=== PATIENT | female | born 1950 | race Caucasian/White ===

== ENCOUNTER 2025-05-03 09:50 | Emergency (ER) | payer OTHER, MEDICARE ==
[~2025-05-03] VITALS: Ht 165.1 cm; Wt 97.3 kg
[2025-05-03 10:44] LABS: BASO # 0.0 10^3/uL (0.0-0.2); BASO % 0.3 % (0.0-1.0); EOS # 0.1 10^3/uL (0.0-0.5); EOS % 0.8 % (0.0-3.0); LYMPH # 1.9 10^3/uL (1.5-5.0); LYMPH % 29.1 % (24.0-44.0); MONO # 0.5 10^3/uL (0.0-0.8); MONO % 8.1 % (2.0-8.0); NEUTROPHILS # 4.0 10^3/uL (1.5-8.5); NEUTROPHILS % 61.5 % (36.0-66.0); PLATELET COUNT, AUTOMATED 247 10^3/uL (150-450)
[2025-05-03 10:56] LABS: INR 1.14
[2025-05-03] MEDS ORDERED: EZET10TA57 PO (11:00)
[2025-05-03] MEDS ORDERED: LEVO25TA5 PO (11:00)
[2025-05-03] MEDS ORDERED: DILT180C70 PO (11:00)
[2025-05-03] MEDS ORDERED: PROP1TAB30 PO (11:00)
[2025-05-03] MEDS ORDERED: PANT40TA29 PO (11:00)
[2025-05-03] MEDS ORDERED: METF-838 PO (11:00)
[2025-05-03] MEDS ORDERED: MONT10TA97 PO (11:00)
[2025-05-03] MEDS ORDERED: ATOR40TA75 PO (11:00)
[2025-05-03] MEDS ORDERED: XARE15TA PO (11:00)
[2025-05-03 11:08] LABS: CPK CREATINE PHOSPHOKINASE 67 U/L (34-145)
[2025-05-03 11:09] LABS: ALT/SGPT 20 U/L (7.0-40); AST/SGOT 14 U/L (<34); CALCIUM LEVEL 9.1 MG/DL (8.3-10.6); CARBON DIOXIDE LEVEL 29 MMOL/L (20-31); CHLORIDE LEVEL 104 MMOL/L (98-107); CREATININE FOR GFR 0.68 MG/DL (0.55-1.30); GLOMERULAR FILTRATION RATE > 90.0 (>39); POTASSIUM SERUM 3.9 MMOL/L (3.5-5.1); SODIUM LEVEL 138 MMOL/L (136-145)
[2025-05-03 11:10] LABS: CK-MB VALUE MASS 1.9 NG/ML (<3.6); MB/CK RELATIVE INDEX 2.83 (< OR =4)
[2025-05-03 11:14] LABS: FREE T4 1.33 NG/DL (0.89-1.76)
[2025-05-03] MEDS ORDERED: HOME MED LIST COMPLETE! XX SCH (12:00)
[2025-05-03 12:30] LABS: CK-MB VALUE MASS 1.8 NG/ML (<3.6)
[2025-05-03 12:31] LABS: CPK CREATINE PHOSPHOKINASE 62 U/L (34-145); MB/CK RELATIVE INDEX 2.90 (< OR =4)
[2025-05-03 14:46] LABS: KETONE, URINE AUTO RFX NEGATIVE (NEGATIVE); LEUKOCYTE ESTERASE UR AUTO RFX NEGATIVE (NEGATIVE); NITRITE, URINE AUTO RFX NEGATIVE (NEGATIVE); RBC, URINE AUTO RFX 1 /HPF (0-3); SQUAM EPITHELIAL CELL UR AURFX 0 /HPF (0-6); WBC, URINE AUTO RFX 0 /HPF (0-3)
[2025-05-03 15:23] VITALS: BP 119/72; TEMP 98.2; O2SAT 94
== END 2025-05-03 15:34 | disposition home or self-care (01) ==
LOC: M ED 11:27
DX: R00.2 Palpitations (principal); I48.91 Unspecified atrial fibrillation; J45.909 Unspecified asthma, uncomplicated